=== PATIENT | male | born 1990 | race Caucasian/White ===

== ENCOUNTER 2019-04-14 06:01 | Emergency (ER) | payer OTHER ==
[~2019-04-14] VITALS: Ht 190.5 cm; Wt 163.3 kg
[~2019-04-14 06:01] MED LIST: HYDROCODONE; IBUPROFEN
--- NOTE | 2019-04-14 07:08 | Diagnostic Imaging Report ---
HAND 3+ VIEWS LEFT - 3 views HISTORY: Pain COMPARISON: None available. FINDINGS: Bones: No acute displaced fracture. Osseous alignment is within normal limits. Joints: The joint spaces are well-maintained. Soft tissues: Soft tissue defect of the proximal fifth digit. IMPRESSION: No acute fracture or dislocation of the left hand. Signed by: Dr. Joshua Siddiqi MD on 04/14/2019 7:05 AM
--- NOTE | 2019-04-14 07:35 | NUR ---
REPORT GIVEN TO Sunny QUACH RN.
--- NOTE | 2019-04-14 07:36 | NUR ---
AT BEDSIDE FOR LAC REPAIR
[2019-04-14] MEDS ORDERED: TETANUS/DIPHTHERIA TOX ADULT 0.5 ML SYR IM ONE (07:45)
[2019-04-14] MEDS ORDERED: TETANUS/DIPHTHERIA TOX ADULT 0.5 ML SYR ONE (07:48)
--- OUTSIDE RECORDS SUMMARY | 2019-04-15 14:03 | XMS REPORT ---
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 Allergies, Adverse Reactions, Alerts This patient has no known allergies or adverse reactions. Medications This patient has no known medications. Results Test Description Test Time Test Comments Text Results Atomic Results Result Comments HAND 3+ VIEWS LEFT 2019-04-14 07:03:00 [facility] [address] [address] Patient Name: JEFRY LAWRENCE MR #: [id number] : 1990 Age/Sex: 28/M Req #: [id number] Adm Physician: Ordered by: CRISTAL CLAY MD Report #: [id number] Location: ER Room/Bed: Procedure: [id number] DX/HAND 3+ VIEWS LEFT Exam Date: 04/14/19 Exam Time: 0645 REPORT STATUS: Signed HAND 3+ VIEWS LEFT - 3 views HISTORY: Pain COMPARISON: None available. FINDINGS: Bones: No acute displaced fracture. Osseous alignment is within normal limits. Joints: The joint spaces are well-maintained. Soft tissues: Soft tissue defect of the proximal fifth digit. IMPRESSION: No acute fracture or dislocation of the left hand. Signed by: Dr. Joshua Siddiqi MD on 04/14/2019 7:05 AM Dictated By: JOSHUA SIDDIQI MD 4 Transcribed By: MILAGRO on 04/14/19704 COPY TO: CRISTAL CLAY MD
== END 2019-04-14 08:31 | disposition home or self-care (01) ==
LOC: ER 06:01
DX: S61.411A Laceration without foreign body of right hand, initial encounter (principal); W26.0XXA Contact with knife, initial encounter; Y93.G1 Activity, food preparation and clean up; Y92.511 Restaurant or cafe as the place of occurrence of the external cause; Y99.0 Civilian activity done for income or pay; Z23 Encounter for immunization
CPT/HCPCS: 90471; 90714; 99283

== ENCOUNTER 2022-09-04 09:39 | Observation (INO) | payer OTHER ==
[~2022-09-04] VITALS: Ht 190.5 cm; Wt 172.4 kg
[2022-09-04] MEDS ORDERED: ONDANSETRON HCL INJ 2MG/ML 2ML 2 MG/ML VIAL IV STA (10:01)
[2022-09-04 10:09] LABS: BASOPHILS % 0.4 % (0.0-1.0); EOSINOPHILS # (AUTO) 0.1 (0.0-0.4); HEMATOCRIT 41.1 % (38.2-49.6); LYMPHOCYTES # (AUTO) 1.4 (1.0-3.2); LYMPHOCYTES % 28.4 % (18.0-39.1); MEAN CORPUSCULAR HEMOGLOBIN 34.1 pg (28-32); MEAN CORPUSCULAR HGB CONC 34.1 g/dL (31-35); MONOCYTES # (AUTO) 0.3 (0.2-0.8); MONOCYTES % 5.8 % (4.4-11.3); NEUTROPHILS # (AUTO) 3.1 (2.1-6.9); NEUTROPHILS % 62.8 % (38.7-80.0); PLATELET COUNT 205 x10e3/uL (140-360); RED BLOOD COUNT 4.11 x10e6/uL (4.3-5.7); RED CELL DISTRIBUTION WIDTH 11.9 % (11.7-14.4)
[2022-09-04] MEDS ORDERED: SODIUM CHLORIDE 0.9% 1000ML 1,000 ML IV ONE (10:15)
[2022-09-04 10:21] LABS: CLARITY,URINE SL CLOUDY (CLEAR); COLOR,URINE YELLOW (YELLOW); KETONES,URINE NEGATIVE (NEGATIVE); LEUKOCYTE ESTERASE ,URINE NEGATIVE (NEGATIVE); NITRITE,URINE NEGATIVE (NEGATIVE); PROTEIN,URINE DIPSTICK 2+ (NEGATIVE); URINE UROBILINOGEN 1 mg/dL (0.2 - 1)
[2022-09-04 10:26] LABS: BACTERIA,URINE FEW /HPF; EPITHELIAL CELLS,URINE FEW /LPF; WBC,URINE (MAN) 21-50 /HPF (0-5)
[2022-09-04 10:30] LABS: ALBUMIN 3.4 g/dL (3.5-5.0); ALBUMIN/GLOBULIN RATIO 0.8 (0.8-2.0); ANION GAP 13.4 mmol/L (8-16); CALCIUM 8.9 mg/dL (8.4-10.2); CREATININE, SERUM 1.02 mg/dL (0.72-1.25); POTASSIUM 3.4 mmol/L (3.5-5.1)
[2022-09-04] MEDS ORDERED: IOPAMIDOL 370 MG/ML 100 ML INFUS..BTL INJ ONE (10:59)
[2022-09-04] MEDS ORDERED: ONDANSETRON HCL INJ 2MG/ML 2ML 2 MG/ML VIAL IV PRN (12:30)
[2022-09-04 14:15] VITALS: BP 132/94; PULSE 93; RESP 22; TEMP 98.4; O2SAT 98
[2022-09-04] MEDS ORDERED: LORAZEPAM INJ 2 MG/ML VIAL IV PRN ×2 (15:00)
[2022-09-04] MEDS ORDERED: THIAMINE HCL INJ 100 MG/ML 2ML VIAL IV SCH (15:00)
[2022-09-04] MEDS: SODIUM CHLORIDE 0.9% 1000ML 1,000 ML IV SCH (15:24)
[2022-09-04] MEDS: FOLIC ACID 1 MG TAB PO SCH (15:51)
[2022-09-04 16:00] VITALS: BP 139/94; PULSE 98; RESP 20; TEMP 98.3; O2SAT 100
[2022-09-04 17:41] VITALS: BP 139/94; PULSE 98; RESP 20; TEMP 98.3; O2SAT 100
[2022-09-04 18:50] VITALS: BP 130/89; PULSE 66; RESP 18; TEMP 97.6
[2022-09-04 20:04] VITALS: BP 130/89; PULSE 66; RESP 18; TEMP 97.6; O2SAT 100
[2022-09-04 22:37] VITALS: BP 132/90; PULSE 80; RESP 18; TEMP 98.1; O2SAT 100
[2022-09-05 01:37] VITALS: BP 137/87; PULSE 98; RESP 21; TEMP 98.8; O2SAT 100
[2022-09-05] MEDS: SODIUM CHLORIDE 0.9% 1000ML 1,000 ML IV SCH ×4 (02:33→21:21)
[2022-09-05 05:29] VITALS: BP 148/95; PULSE 78; RESP 18; TEMP 98.2; O2SAT 100
[2022-09-05 05:56] LABS: BASOPHILS % 0.3 % (0.0-1.0); EOSINOPHILS # (AUTO) 0.1 (0.0-0.4); EOSINOPHILS % 3.4 % (0.0-6.0); HEMATOCRIT 37.6 % (38.2-49.6); HEMOGLOBIN 12.7 g/dL (14.0-18.0); LYMPHOCYTES # (AUTO) 1.3 (1.0-3.2); LYMPHOCYTES % 35.1 % (18.0-39.1); MEAN CORPUSCULAR HEMOGLOBIN 33.7 pg (28-32); MEAN CORPUSCULAR HGB CONC 33.8 g/dL (31-35); MEAN CORPUSCULAR VOLUME 99.7 fL (81-99); MONOCYTES # (AUTO) 0.3 (0.2-0.8); MONOCYTES % 8.9 % (4.4-11.3); PLATELET COUNT 201 x10e3/uL (140-360); RED BLOOD COUNT 3.77 x10e6/uL (4.3-5.7); RED CELL DISTRIBUTION WIDTH 11.9 % (11.7-14.4)
[2022-09-05 06:09] LABS: INR 1.02; PROTHROMBIN TIME 13.9 seconds (11.9-14.5)
[2022-09-05 06:10] LABS: PARTIAL THROMBOPLASTIN TIME 29.9 seconds (23.8-35.5)
[2022-09-05 06:37] LABS: ALBUMIN 3.1 g/dL (3.5-5.0); ALBUMIN/GLOBULIN RATIO 0.9 (0.8-2.0); ANION GAP 11.7 mmol/L (8-16); CALCIUM 8.5 mg/dL (8.4-10.2); CREATININE, SERUM 0.94 mg/dL (0.72-1.25); POTASSIUM 3.7 mmol/L (3.5-5.1)
[2022-09-05 08:08] VITALS: BP 134/98; PULSE 74; RESP 20; TEMP 98.5; O2SAT 100
[2022-09-05 08:40] VITALS: BP 134/98; PULSE 74; RESP 20; TEMP 98.5; O2SAT 100
[2022-09-05] MEDS: FOLIC ACID 1 MG TAB PO SCH (09:00)
[2022-09-05 11:28] VITALS: BP 147/103; PULSE 75; RESP 19; TEMP 98.4; O2SAT 100
[2022-09-05] MEDS ORDERED: PROPOFOL IV EMULSION 50 ML IV ONE (13:44)
[2022-09-05 20:00] VITALS: BP 133/97; PULSE 89; RESP 18; TEMP 98.5; O2SAT 97
[2022-09-06] VITALS: BP 122/70; PULSE 82; RESP 18; TEMP 97.3; O2SAT 98
[2022-09-06] MEDS: SODIUM CHLORIDE 0.9% 1000ML 1,000 ML IV SCH (03:52)
[2022-09-06 04:00] VITALS: BP 134/95; PULSE 70; RESP 18; TEMP 98.5; O2SAT 99
[2022-09-06 05:52] LABS: BASOPHILS % 0.2 % (0.0-1.0); EOSINOPHILS # (AUTO) 0.2 (0.0-0.4); EOSINOPHILS % 2.9 % (0.0-6.0); HEMATOCRIT 38.1 % (38.2-49.6); LYMPHOCYTES # (AUTO) 1.6 (1.0-3.2); MEAN CORPUSCULAR HEMOGLOBIN 33.7 pg (28-32); MEAN CORPUSCULAR HGB CONC 34.1 g/dL (31-35); MEAN CORPUSCULAR VOLUME 98.7 fL (81-99); MONOCYTES # (AUTO) 0.4 (0.2-0.8); MONOCYTES % 6.7 % (4.4-11.3); NEUTROPHILS # (AUTO) 4.3 (2.1-6.9); NEUTROPHILS % 64.9 % (38.7-80.0); PLATELET COUNT 208 x10e3/uL (140-360); RED BLOOD COUNT 3.86 x10e6/uL (4.3-5.7); RED CELL DISTRIBUTION WIDTH 11.6 % (11.7-14.4)
[2022-09-06 06:28] LABS: ALBUMIN 3.1 g/dL (3.5-5.0); ALBUMIN/GLOBULIN RATIO 0.8 (0.8-2.0); ANION GAP 11.9 mmol/L (8-16); CALCIUM 8.6 mg/dL (8.4-10.2); CREATININE, SERUM 0.9 mg/dL (0.72-1.25); POTASSIUM 3.9 mmol/L (3.5-5.1)
[2022-09-06 07:51] VITALS: BP 148/87; PULSE 96; RESP 17; TEMP 98.4; O2SAT 98
[2022-09-06] MEDS: FOLIC ACID 1 MG TAB PO SCH (08:49)
[2022-09-06 08:51] VITALS: BP 148/87; PULSE 96; RESP 17; TEMP 98.4; O2SAT 98
[2022-09-06] MEDS ORDERED: NITROFURANTOIN100 MG PO (09:06)
[2022-09-06] MEDS ORDERED: PANTOPRAZOLE SO40 MG PO (09:06)
[2022-09-06 11:43] VITALS: BP 142/94; PULSE 91; RESP 20; TEMP 98.4; O2SAT 98
== END 2022-09-06 13:03 | disposition home or self-care (01) ==
LOC: ER 09:49 → ERHOLD 12:21 → MED/SURG2 14:41
PROVIDERS: ADMIT Internal Medicine; ATTEND Internal Medicine
DX: K92.0 Hematemesis (principal); K29.50 Unspecified chronic gastritis without bleeding; K22.10 Ulcer of esophagus without bleeding; K44.9 Diaphragmatic hernia without obstruction or gangrene; R00.0 Tachycardia, unspecified; E87.6 Hypokalemia; N39.0 Urinary tract infection, site not specified; F10.10 Alcohol abuse, uncomplicated; R74.01 Elevation of levels of liver transaminase levels; K76.0 Fatty (change of) liver, not elsewhere classified; E66.01 Morbid (severe) obesity due to excess calories; Z68.42 Body mass index [BMI] 45.0-49.9, adult; F17.210 Nicotine dependence, cigarettes, uncomplicated
CPT/HCPCS: 0223U; 36415 ×3; 43239; 74177; 80053 ×3; 80320; 81001; 83690; 85025 ×3; 85610; 85730; 87086; 88305; 88342; 93005; 99284; C9113 ×3; G0378 ×3; J0696 ×2; J2405; J2704; J3411 ×3; J7030 ×3; Q9967; 88312